=== PATIENT | male | born 1985 | race Caucasian/White ===

== ENCOUNTER 2018-06-19 20:26 | Emergency (ER) | payer SELFPAY | END 2018-06-19 21:00 | disposition home or self-care (01) | LOC: BURERS 20:26 | DX: S23.3XXA Sprain of ligaments of thoracic spine, initial encounter (principal); F17.210 Nicotine dependence, cigarettes, uncomplicated; X50.1XXA Overexertion from prolonged static or awkward postures, initial encounter | CPT/HCPCS: 96372 ==

== ENCOUNTER 2019-04-11 10:01 | Emergency (ER) | payer SELFPAY ==
--- NOTE | 2019-04-11 10:39 | RAD ---
3 VIEWS RIGHT RING FINGER: Date: 04/11/19 HISTORY: Ring finger pain after punching a wall. FINDINGS: Three views of the right ring finger shows lucency on the lateral radiograph along the base of the mi ddle phalanx near the PIP joint. This could represent a small fracture of the volar plate in this loc ation. No dislocation is seen. IMPRESSION: Possible small fracture of the base of the middle phalanx. POS: RICK
== END 2019-04-11 10:48 | disposition home or self-care (01) ==
LOC: BURERS 10:01
DX: S62.654A Nondisplaced fracture of middle phalanx of right ring finger, initial encounter for closed fracture (principal); F17.210 Nicotine dependence, cigarettes, uncomplicated; W22.8XXA Striking against or struck by other objects, initial encounter

== ENCOUNTER 2020-01-01 10:16 | Emergency (ER) | payer SELFPAY | END 2020-01-01 10:43 | disposition home or self-care (01) | LOC: BURERS 10:16 | DX: M54.12 Radiculopathy, cervical region (principal); I10 Essential (primary) hypertension; F17.210 Nicotine dependence, cigarettes, uncomplicated | CPT/HCPCS: 99283 ==